=== PATIENT | female | born 2000 | race Two or more races ===

== ENCOUNTER 2022-02-22 14:03 | Emergency (ER) | payer OTHER ==
[~2022-02-22] VITALS: Ht 157.5 cm; Wt 56.7 kg
[2022-02-22] MEDS ORDERED: PEPCID AC20 MG PO (18:47)
[2022-02-22] MEDS ORDERED: ONDANSETRON HCL4 MG PO (18:47)
[2022-02-22] MEDS ORDERED: ACETAMINOPHEN650 M2 PO (18:50)
== END 2022-02-22 19:06 | disposition home or self-care (01) ==
LOC: EMR PED 14:03 → ER 14:10
DX: O21.0 Mild hyperemesis gravidarum (principal); R07.89 Other chest pain; Z20.822 Contact with and (suspected) exposure to COVID-19

== ENCOUNTER 2022-07-05 11:30 | Emergency (ER) | payer OTHER ==
[~2022-07-05] VITALS: Ht 157.5 cm; Wt 59.9 kg
[~2022-07-05 11:30] MED LIST: ACETAMINOPHEN650 M2 PO; ONDANSETRON HCL4 MG PO; PEPCID AC20 MG PO
[2022-07-05] MEDS ORDERED: PRENA1 TRUE CO1 EACH PO (12:13)
== END 2022-07-05 13:55 | disposition home or self-care (01) ==
LOC: EMR PED 11:30 → ER 11:36 → EMR PED 11:36 → ER 13:55
DX: O26.893 Other specified pregnancy related conditions, third trimester (principal); Z3A.29 29 weeks gestation of pregnancy; M54.2 Cervicalgia

== ENCOUNTER 2024-07-04 15:18 | Outpatient (CLI) | payer OTHER ==
[~2024-07-04 15:18] MED LIST changes: +NIFEDIPINE10 MG PO; +PRENA1 TRUE CO1 EACH PO; +PRENATAL TABLE1 EAC3 PO
== END 2024-07-04 15:19 | disposition home or self-care (01) ==
LOC: PRENATAL 15:18
PROVIDERS: ATTEND Obstetrics & Gynecology Maternal & Fetal Medicine
DX: O35.3XX0 Maternal care for (suspected) damage to fetus from viral disease in mother, not applicable or unspecified (principal); O44.00 Complete placenta previa NOS or without hemorrhage, unspecified trimester; Z3A.24 24 weeks gestation of pregnancy

== ENCOUNTER 2024-08-28 15:19 | Outpatient (CLI) | payer OTHER | END 2024-08-28 15:22 | disposition home or self-care (01) | LOC: PRENATAL 15:19 | PROVIDERS: ATTEND Obstetrics & Gynecology Maternal & Fetal Medicine | DX: O26.849 Uterine size-date discrepancy, unspecified trimester (principal); O36.8199 Decreased fetal movements, unspecified trimester, other fetus; Z3A.33 33 weeks gestation of pregnancy ==